=== PATIENT | male | born 1985 | race Caucasian/White ===

== ENCOUNTER 2016-08-29 09:47 | Emergency (ER) | payer MEDICAID ==
[~2016-08-29] VITALS: Ht 170.2 cm; Wt 68.9 kg
[2016-08-29 09:50] VITALS: BP 127/80
== END 2016-08-29 11:21 | disposition home or self-care (01) ==
LOC: ED 09:47
DX: K20.9 Esophagitis, unspecified (principal)

== ENCOUNTER 2018-04-15 22:04 | Emergency (ER) | payer MEDICAID ==
[~2018-04-15] VITALS: Ht 167.6 cm; Wt 76.7 kg
[2018-04-15 22:21] VITALS: Ht 167.6 cm; Wt 76.7 kg
[2018-04-15 23:32] VITALS: BP 139/71
== END 2018-04-15 23:32 | disposition home or self-care (01) ==
LOC: ED 22:04
DX: N45.1 Epididymitis (principal); A56.01 Chlamydial cystitis and urethritis; A54.01 Gonococcal cystitis and urethritis, unspecified
CPT/HCPCS: 87491; 87591; J0696